=== PATIENT | male | born 1980 | race Caucasian/White ===

== ENCOUNTER 2021-06-03 18:00 | Emergency (ER) | payer MEDICARE, OTHER ==
[~2021-06-03 18:00] MED LIST: KLONOPIN0.5 MG PO; PERCOCET 5/325 T1 EA PO; PROBIOTIC1 EAC3 PO; ROBITUSSIN COU1 EACH PO; VIBRAMYCIN100 MG PO
== END 2021-06-03 18:24 | disposition left against medical advice (07) ==
LOC: ER1 18:00
DX: Z53.21 Procedure and treatment not carried out due to patient leaving prior to being seen by health care provider (principal)